=== PATIENT | male | born 2000 | race Caucasian/White ===

== ENCOUNTER 2025-03-13 22:11 | Emergency (ER) | payer OTHER ==
[2025-03-13 22:22] LABS: BASOPHILS ABSOLUTE AUTO 0.04 K/uL (0.00-0.20); BASOPHILS PERCENT AUTO 0.3 % (0.0-1.0); EOSINOPHILS ABSOLUTE AUTO 0.01 K/uL (0.00-0.45); EOSINOPHILS PERCENT AUTO 0.1 % (0.0-6.0); HEMATOCRIT 44.2 % (42.0-52.0); HEMOGLOBIN 15.5 g/dL (14.0-18.0); IMMATURE GRAN ABSOLUTE AUTO 0.03 K/uL (0.00-0.05); IMMATURE GRAN PERCENT AUTO 0.3 % (0.0-0.4); LYMPHOCYTES ABSOLUTE AUTO 1.62 K/uL (1.00-4.80); LYMPHOCYTES PERCENT AUTO 14.1 % (24.0-44.0); MEAN CORPUSCULAR HEMOGLOBIN 29.6 pg (28.0-32.0); MEAN CORPUSCULAR HGB CONC 35.1 g/dL (32.0-36.0); MEAN CORPUSCULAR VOLUME 84.4 fL (83.0-99.0); MEAN PLATELET VOLUME 9.1 fL (9.4-12.4); MONOCYTES ABSOLUTE AUTO 0.71 K/uL (0.00-0.80); MONOCYTES PERCENT AUTO 6.2 % (0.0-8.0); NEUTROPHILS ABSOLUTE AUTO 9.04 K/uL (1.80-7.70); PLATELET COUNT,PLT 243 K/uL (150-400); RED BLOOD CELL COUNT 5.24 M/uL (4.52-5.90); WHITE BLOOD CELL COUNT,WBC 11.45 K/uL (3.9-11.3)
[2025-03-13] MEDS: Iopamidol 755 MG/ML 500 ML Multipack Bottle IVPUSH ONE (22:36)
[2025-03-13] MEDS: Sodium Chloride 0.9% 10 ML Syringe FLUSH PRN (22:38)
[2025-03-13] MEDS: Ondansetron 4 MG/2 ML SDV IVPUSH ONE (22:38)
[2025-03-13 22:44] LABS: A/G RATIO 1.4 (0.9-1.6); ALBUMIN 4.4 g/dL (3.4-5.0); BILIRUBIN TOTAL 0.5 mg/dL (0.2-1.0); CALCIUM 8.9 mg/dL (8.5-10.1); CARBON DIOXIDE,CO2 28.2 mmol/L (21.0-32.0); CREATININE 1.3 mg/dL (0.8-1.3); EST CRCL DRUG DOSING (CG) 95.34 mL/min; POTASSIUM,K 3.5 mmol/L (3.5-5.1); PROTEIN TOTAL,TP 7.6 g/dL (6.4-8.2)
[2025-03-13] MEDS ORDERED: Naloxone 0.4 MG/ML SDV IVPUSH PRN (22:52)
[2025-03-13] MEDS: HYDROmorphone 0.5 MG/0.5 ML Syringe IVPUSH ONE (23:00)
[2025-03-14] MEDS: Metoclopramide 10 MG/2 ML SDV IVPUSH ONE (00:36)
[2025-03-14] MEDS ORDERED: Naloxone 0.4 MG/ML SDV IVPUSH PRN ×2 (00:40→02:33)
[2025-03-14] MEDS: Sodium Chloride 0.9% 1,000 ML IV ONE (00:52)
[2025-03-14] MEDS: HYDROmorphone 0.5 MG/0.5 ML Syringe IVPUSH ONE ×2 (00:52→02:46)
[2025-03-14] MEDS: Ondansetron 4 MG/2 ML SDV IVPUSH ONE (07:15)
[2025-03-14 07:37] LABS: INR 1.1 (0.86-1.11)
== END 2025-03-14 13:28 | disposition home or self-care (01) ==
LOC: MW.ED 22:11
DX: S06.5X0A Traumatic subdural hemorrhage without loss of consciousness, initial encounter (principal); S06.0X0A Concussion without loss of consciousness, initial encounter; V29.99XA Rider (driver) (passenger) of other motorcycle injured in unspecified traffic accident, initial encounter; Y93.55 Activity, bike riding
CPT/HCPCS: 36415; 70450; 71260; 72125; 74177; 80053; 85025; 85610; 96361; 96374; 96375; 96376; 99284; J1100; J2405; J2765; J7030; Q9967; 99283